=== PATIENT | female | born 1980 | race Caucasian/White ===

== ENCOUNTER 2018-11-04 05:31 | Day surgery (SDC) | payer OTHER ==
[~2018-11-04 05:31] MED LIST: POLY119PG
[2018-11-04] MEDS ORDERED: PERCOCET 5-3251 EACH PO (11:19)
[2018-11-04] MEDS ORDERED: SURFAK240 M1 PO (11:20)
[2018-11-04] MEDS ORDERED: POLY119PG PO (11:20)
[2018-11-04] MEDS ORDERED: IBUPROFEN600 MG PO (11:21)
== END 2018-11-04 14:15 | disposition home or self-care (01) ==
LOC: CIR.AMB 05:31
DX: K80.10 Calculus of gallbladder with chronic cholecystitis without obstruction (principal); K42.9 Umbilical hernia without obstruction or gangrene; K43.2 Incisional hernia without obstruction or gangrene